=== PATIENT | female | born 1975 | race Caucasian/White ===

== ENCOUNTER 2022-01-02 15:08 | Emergency (ER) | payer SELFPAY ==
[2022-01-02] MEDS ORDERED: GABAPENTIN 100 MG (NEURONTIN) CAP PO STA (15:27)
[2022-01-02] MEDS ORDERED: NS IV 1000 ML 1,000 ML IV STA (15:27)
[2022-01-02 15:33] LABS: BASOPHILS # (AUTO) 0.1 10^3/uL (0.0-0.1); BASOPHILS % (AUTO) 1 % (0-10); EOSINOPHILS # (AUTO) 0.2 10^3/uL (0.0-0.3); EOSINOPHILS % (AUTO) 2 % (0-10); HEMATOCRIT 32 % (35-52); HEMOGLOBIN 11.4 g/dL (11.5-16.0); LYMPHOCYTES # (AUTO) 2.8 10^3/uL (1.0-4.0); LYMPHOCYTES % (AUTO) 30 % (12-44); MEAN CORPUSCULAR HEMOGLOBIN 28 pg (25-34); MEAN CORPUSCULAR HGB CONC 35 g/dL (32-36); MEAN CORPUSCULAR VOLUME 79 fL (80-99); MONOCYTES # (AUTO) 0.6 10^3/uL (0.0-1.0); MONOCYTES % (AUTO) 7 % (0-12); NEUTROPHILS # (AUTO) 5.6 10^3/uL (1.8-7.8); NEUTROPHILS % (AUTO) 60 % (42-75); PLATELET COUNT 379 10^3/uL (130-400); WHITE BLOOD COUNT 9.3 10^3/uL (4.3-11.0)
--- NOTE | 2022-01-02 15:33 | ED General ---
General Chief Complaint: General Problems/Pain Stated Complaint: DEVENDRA LEG SWELLING/PAIN Source of Information: Patient History of Present Illness Date Seen by Provider: Jan 02, 2022 Time Seen by Provider: 15:14 Initial Comments 46-year-old female presenting with complaints of bilateral feet swelling and pain. She states that this has been going on for over 6 months and it felt worse today. She had been outside trying to get things ready for a garage sale. She was not sure if the pain and swelling today was due to heat or her blood sugars. She ran out of test strips so has not tested sugars for over a week. She was diagnosed with diabetes a year ago and since then has lost over 40 pounds and had swelling and pain in her feet. She saw Dr. Del Real, fiberglasser from [place], and he ordered an echocardiogram. She has not had that done yet. She also is trying to get in with neurology and other testing to check for lupus, MS, arthritis. She states that she was just tired of the pain and feeling worse today so she came to the emergency department. Associated Systoms: No Chest Pain, No Cough, No Diaphoresis, No Fever/Chills, No Headaches, No Loss of Appetite, No Malaise; Nausea/Vomiting (intermittent but not recently); No Rash, No Seizure, No Shortness of Air, No Syncope Allergies and Home Medications Allergies Coded Allergies: No Known Drug Allergies (Unverified , 01/02/22) Patient Home Medication List Home Medication List Reviewed: Yes Review of Systems Review of Systems Constitutional: malaise EENTM: no symptoms reported Respiratory: dyspnea on exertion Cardiovascular: edema (chronic swelling of bilateral feet over 6 months) Gastrointestinal: see HPI Genitourinary: dysuria (currently taking Cephalexin for UTI) Musculoskeletal: see HPI, muscle pain (bilateral lower leg/foot pain) Skin: pruritus (bilateral feet) Psychiatric/Neurological: Other (burning pain in bilateral feet) Past Awjiscj-Qasrnh-Lxecgh Hx Patient Social History Tobacco Use?: Yes Tobacco type used: Cigarettes Smoking Status: Current Everyday Smoker Substance use?: No Alcohol Use?: No Pt feels they are or have been: No Past Medical History Surgery/Hospitalization HX: Type 2 Diabetes; Lower extremity edema for past 6 months. Physical Exam Vital Signs Vital Signs - First Documented 01/02/22 15:12 Temp 36.2 Pulse 107 Resp 16 B/P (MAP) 153/81 (105) Pulse Ox 99 O2 Delivery Room Air Capillary Refill : Height, Weight, BMI Height: '" Weight: lbs. oz. kg; BMI Method: General Appearance: No Apparent Distress, Thin HEENT: PERRL/EOMI, Pharynx Normal Neck: Full Range of Motion, Normal Inspection, Non Tender, Supple Respiratory: Chest Non Tender, Lungs Clear, Normal Breath Sounds, No Accessory Muscle Use, No Respiratory Distress Cardiovascular: Regular Rate, Rhythm, Normal Peripheral Pulses Gastrointestinal: Normal Bowel Sounds, No Pulsatile Mass, Non Tender, Soft Extremity: Normal Capillary Refill, Normal Range of Motion, No Calf Tenderness, Pedal Edema (2+ pitting edema bilateral feet), Other (tender to palpation bilateral feet) Neurologic/Psychiatric: Alert, Oriented x3, customer support professional II-XII Norm as Tested Skin: Normal Color, Warm/Dry Progress/Results/Core Measures Suspected Sepsis SIRS Temperature: Pulse: Respiratory Rate: Laboratory Tests 01/02/22 15:20: White Blood Count 9.3 Blood Pressure / Mean: Laboratory Tests 01/02/22 15:20: Creatinine 0.59L, INR Comment 1.0, Platelet Count 379, Total Bilirubin 0.2 Results/Orders Lab Results Laboratory Tests Test 01/02/22 15:20 01/02/22 15:38 01/02/22 16:33 Range/Units White Blood Count 9.3 4.3-11.0 10^3/uL Red Blood Count 4.09 3.80-5.11 10^6/uL Hemoglobin 11.4 L 11.5-16.0 g/dL Hematocrit 32 L 35-52 % Mean Corpuscular Volume 79 L 80-99 fL Mean Corpuscular Hemoglobin 28 25-34 pg Mean Corpuscular Hemoglobin Concent 35 32-36 g/dL Red Cell Distribution Width 12.6 10.0-14.5 % Platelet Count 379 130-400 10^3/uL Mean Platelet Volume 10.0 9.0-12.2 fL Immature Granulocyte % (Auto) 0 % Neutrophils (%) (Auto) 60 42-75 % Lymphocytes (%) (Auto) 30 12-44 % Monocytes (%) (Auto) 7 0-12 % Eosinophils (%) (Auto) 2 0-10 % Basophils (%) (Auto) 1 0-10 % Neutrophils # (Auto) 5.6 1.8-7.8 10^3/uL Lymphocytes # (Auto) 2.8 1.0-4.0 10^3/uL Monocytes # (Auto) 0.6 0.0-1.0 10^3/uL Eosinophils # (Auto) 0.2 0.0-0.3 10^3/uL Basophils # (Auto) 0.1 0.0-0.1 10^3/uL Immature Granulocyte # (Auto) 0.0 0.0-0.1 10^3/uL Prothrombin Time 13.2 12.2-14.7 SEC INR Comment 1.0 0.8-1.4 Activated Partial Thromboplast Time 26 24-35 SEC Sodium Level 128 L 135-145 MMOL/L Potassium Level 3.5 L 3.6-5.0 MMOL/L Chloride Level 94 L 98-107 MMOL/L Carbon Dioxide Level 23 21-32 MMOL/L Anion Gap 11 5-14 MMOL/L Blood Urea Nitrogen 3 L 7-18 MG/DL Creatinine 0.59 L 0.60-1.30 MG/DL Estimat Glomerular Filtration Rate 112 BUN/Creatinine Ratio 5 Glucose Level 608 *H 70-105 MG/DL Calcium Level 9.3 8.5-10.1 MG/DL Corrected Calcium 9.1 8.5-10.1 MG/DL Magnesium Level 2.0 1.6-2.4 MG/DL Total Bilirubin 0.2 0.1-1.0 MG/DL Aspartate Amino Transf (AST/SGOT) 28 5-34 U/L Alanine Aminotransferase (ALT/SGPT) 29 0-55 U/L Alkaline Phosphatase 169 H 40-136 U/L Pro-B-Type Natriuretic Peptide 34.3 <125.0 PG/ML Total Protein 7.0 6.4-8.2 GM/DL Albumin 4.2 3.2-4.5 GM/DL Lipase 7 L 8-78 U/L Glucometer 541 *H 184 H 70-110 MG/DL My Orders Orders - BONITA DAY MD Cbc With Automated Diff (01/02/22 15:27) Magnesium (01/02/22 15:27) Comprehensive Metabolic Panel (01/02/22 15:27) Protime With Inr (01/02/22 15:27) Partial Thromboplastin Time (01/02/22 15:27) Ed Iv/Invasive Line Start (01/02/22 15:27) Lipase (01/02/22 15:27) Probnp Fs (01/02/22 15:27) Accucheck Stat ONCE (01/02/22 15:27) Ns Iv 1000 Ml (Sodium Chloride 0.9%) (01/02/22 15:27) Gabapentin Capsule/Tablet (Neurontin Cap (01/02/22 15:27) Insulin (Regular) Human (Novolin R (Per (01/02/22 15:43) Rx-Hydrocodone/Apap 5-325 Mg (Rx-Vicodin (01/02/22 17:15) Medications Given in ED Current Medications Medications Dose Ordered Sig/Patricia Route Start Time Stop Time Status Last Admin Dose Admin Acetaminophen/ Hydrocodone Bitart 1 ea Q6H PRN PO 01/02/22 17:15 01/02/22 17:38 DC 01/02/22 17:15 1 EA Vital Signs/I&O 01/02/22 01/02/22 15:12 17:15 Temp 36.2 36.2 Pulse 107 95 Resp 16 16 B/P (MAP) 153/81 (105) 155/81 Pulse Ox 99 99 O2 Delivery Room Air Room Air Capillary Refill : Progress Note #1: Progress Note Advised patient I would not necessarily have an answer for her chronic symptoms. We can check and see what her sugar was started and check some general labs. She would still need to follow-up with the echocardiogram and testing as directed by Naima. She was also asking about possibility of lupus or MS and patient was advised that she would definitely need to have specialized testing beyond what I have available here in the emergency department to help determine those diagnoses. Will try giving normal saline 1 L IV fluid bolus for hydration as patient states she has been outside in the heat and was concerned about dehydration. Obtain Accu-Chek to see what her sugar is doing as well as basic labs. Including proBNP to help look for signs of heart failure and fluid overload. Try to order dose of gabapentin but unsure if that is stocked in the emergency department medications Progress Note #2: Progress Note Accu-Chek was 541. Patient then told me she was taking all of her medicines but when her sugar was elevated she told the nurse that she did not like to give herself a shot so she has not been giving any of the injectable insulins and was only taking the metformin to help with her diabetes. This certainly would help explain the increased neuropathy pain with her feet and swelling. Ordered 10 units of regular insulin IV to try and help with her elevated glucose Progress Note #3: Progress Note The rest of her labs all appear stable and the elevated glucose. She had no improvement in her pain so far with treatment in the ED. Advised that she may need an antidepressant that works in combination with treating neuropathy pain. She would need to get this prescribed from her primary care provider. In the meantime we will send her with hydrocodone take-home pack to try and help with severe pain until she can call the clinic in the morning. Departure Impression Primary Impression: Hyperglycemia due to type 2 diabetes mellitus Qualified Codes: E11.65 - Type 2 diabetes mellitus with hyperglycemia; Z79.4 - senior care (current) use of insulin Additional Impressions: Diabetic neuropathy associated with type 2 diabetes mellitus Qualified Codes: E11.42 - Type 2 diabetes mellitus with diabetic polyneuropathy Bilateral swelling of feet and ankles Disposition: HOME, SELF-CARE Condition: Stable Departure-Patient Inst. Decision time for Depature: 17:07 Referrals: JENY PEACOCK (PCP) Primary Care Physician MICKY MORAN MD (Family) Primary Care Physician Patient Instructions: Diabetes and Diet, Diabetic Neuropathy (DC), High Blood Sugar, Adult ED Add. Discharge Instructions: Try to keep your sugars under better control and this will help with the diabetic neuropathy. Call the clinic in the morning and asked them about possibly being prescribed a antidepressant that would also help with your diabetic neuropathy. This would help with your mood and your nerve pain. Continue to work with the clinic about helping to get better control of your sugars and diabetes. You can take the hydrocodone pain pill to try and help from a pain standpoint. This will not make the Neuropathy go away, but might help you rest until you can get in touch with the clinic All discharge instructions reviewed with patient and/or family. Voiced understanding. BONITA DAY MD Jan 02, 2022 15:32
[2022-01-02] MEDS ORDERED: inSUlin (REGULAR) HUMAN 1 UNIT/0.01 ML (CHARGE PER UNIT) IV STA (15:43)
[2022-01-02 15:45] LABS: PROTHROMBIN TIME PATIENT 13.2 SEC (12.2-14.7)
[2022-01-02 15:57] LABS: CREATININE SERUM 0.59 MG/DL (0.60-1.30); POTASSIUM 3.5 MMOL/L (3.6-5.0)
[2022-01-02 15:58] LABS: ALBUMIN 4.2 GM/DL (3.2-4.5); BILIRUBIN,TOTAL 0.2 MG/DL (0.1-1.0); CALCIUM 9.3 MG/DL (8.5-10.1)
[2022-01-02 17:15] VITALS: BP 155/81
== END 2022-01-02 17:15 | disposition home or self-care (01) ==
LOC: ER FS 15:11
DX: E11.65 Type 2 diabetes mellitus with hyperglycemia (principal); E11.42 Type 2 diabetes mellitus with diabetic polyneuropathy; F17.210 Nicotine dependence, cigarettes, uncomplicated; Z79.4 Long term (current) use of insulin; Z79.84 Long term (current) use of oral hypoglycemic drugs; Z28.310 Unvaccinated for COVID-19
CPT/HCPCS: 36415; 80053; 82947; 83690; 83735; 83880; 85025; 85610; 85730